=== PATIENT | male | born 1940 | race Caucasian/White ===

== ENCOUNTER → 2017-09-06 | Outpatient (CLI) | payer OTHER ==
[~2017-09-06] MED LIST: APRACLONIDINE 1% 0.1 ML OPH ONE; PILOCARPINE 2% 15ML OPH ONE; PROPARACAINE 0.5% 15 ML OPH ONE
== END | disposition home or self-care (01) ==
LOC: RAD 10:25
PROVIDERS: ATTEND Ophthalmology
DX: H40.20X0 Unspecified primary angle-closure glaucoma, stage unspecified (principal)
CPT/HCPCS: 66761; Z7610

== ENCOUNTER → 2017-09-11 | Outpatient (CLI) | END | disposition home or self-care (01) ==